=== PATIENT | female | born 2005 | race Hispanic/Latino ===

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

== ENCOUNTER 2023-11-19 16:21 | Inpatient (IN) | payer SELFPAY ==
[2023-11-19] MEDS ORDERED: Guaifenesin DM 100-10/5 ML UDCUP PO PRN (17:34)
[2023-11-19] MEDS ORDERED: Ondansetron PF 4 MG/2 ML Vial IVP PRN (17:34)
[2023-11-19] MEDS ORDERED: Acetaminophen 325 MG TAB PO PRN (17:34)
[2023-11-19] MEDS ORDERED: Sodium Chloride 0.9% 1,000 ML IV PRN ×4 (17:34)
[2023-11-19] MEDS ORDERED: NS 0.9% w/ 20 MEQ KCL 1,000 ML IV PRN ×2 (17:34)
[2023-11-19] MEDS ORDERED: Dextrose 50% Abboject 50 ML SYRINGE SLOW IVP PRN (17:34)
[2023-11-19] MEDS ORDERED: Electrolyte Replacement Protocol FS PRN (18:30)
[2023-11-19 18:35] LABS: BHCG - Serum Negative (NEGATIVE); Pregs Control Background? CLEAR/WHITE (CLR/WHITE); Pregs Control Bar Appear? YES (CONTROL BAR)
[2023-11-19 18:44] LABS: Anion Gap 16 mmol/L (10-20); BUN (Urea Nitrogen) 8 mg/dL (7.0-18.7); Calc. Creatinine Clearance 0 mL/min (70-130); Calcium 7.9 mg/dL (7.8-10.44); Carbon Dioxide Less than 8 mmol/L (22-29); Chloride 113 mmol/L (98-107); Estimated GFR 101; Glucose 194 mg/dL (70-105); Potassium 3.4 mmol/L (3.5-5.1); Sodium 133 mmol/L (136-145)
[2023-11-19] MEDS: Dextrose 5 %-0.45 % NaCl 1,000 ML IV PRN (19:00)
[2023-11-19 19:28] VITALS: BMI 24.0
[2023-11-19 22:56] LABS: Amphetamine Not Detected (NotDetected); Barbiturates Screen Not Detected (NotDetected); Benzodiazepine Screen Not Detected (NotDetected); Cocaine Metabolite Screen Not Detected (NotDetected); Methadone Not Detected (NotDetected); Methamphetamine Not Detected (NotDetected); Opiate Screen Not Detected (NotDetected); Oxycodone Screen Not Detected (NotDetected); Phencyclidine (PCP) Not Detected (NotDetected); THC/Cannabinoid Screen Not Detected (NotDetected); Tricyclic Screen Not Detected (NotDetected)
[2023-11-19 23:03] LABS: Anion Gap 9 mmol/L (10-20); BUN (Urea Nitrogen) 5 mg/dL (7.0-18.7); Calc. Creatinine Clearance 104 mL/min (70-130); Calcium 8.2 mg/dL (7.8-10.44); Carbon Dioxide 12 mmol/L (22-29); Chloride 116 mmol/L (98-107); Estimated GFR 107; Glucose 207 mg/dL (70-105); Potassium 3.3 mmol/L (3.5-5.1); Sodium 134 mmol/L (136-145)
[2023-11-19] MEDS: Electrolyte Replacement Protocol 1 EACH IVPB ONE (23:03)
[2023-11-19] MEDS: Potassium Chloride 20 MEQ TAB PO SCH (23:20)
[2023-11-20 04:50] LABS: ALT (SGPT) 9 U/L (8-55); AST (SGOT) 9 U/L (5-34); Alkaline Phosphatase 55 U/L (40-100); Anion Gap 10 mmol/L (10-20); BUN (Urea Nitrogen) 4 mg/dL (7.0-18.7); Bilirubin, Total 0.2 mg/dL (0.2-1.2); Calc. Creatinine Clearance 115 mL/min (70-130); Calcium 8.1 mg/dL (7.8-10.44); Carbon Dioxide 13 mmol/L (22-29); Chloride 115 mmol/L (98-107); Estimated GFR 121; Globulin 2.6 g/dL (2.4-3.5); Glucose 161 mg/dL (70-105); Potassium 3.6 mmol/L (3.5-5.1); Protein, Total 5.6 g/dL (6.0-8.3); Sodium 134 mmol/L (136-145)
[2023-11-20] MEDS: Enoxaparin 40 MG (0.4 mL) SYRINGE SC SCH (08:52)
[2023-11-20] MEDS: Pantoprazole DR 40 MG TAB PO SCH (08:52)
[2023-11-20 10:34] LABS: Phosphorus 1.4 mg/dL (2.3-4.7)
[2023-11-20 12:22] LABS: Anion Gap 10 mmol/L (10-20); BUN (Urea Nitrogen) Less than 4 mg/dL (7.0-18.7); Calc. Creatinine Clearance 118 mL/min (70-130); Calcium 8.4 mg/dL (7.8-10.44); Carbon Dioxide 15 mmol/L (22-29); Chloride 113 mmol/L (98-107); Estimated GFR 123; Glucose 188 mg/dL (70-105); Potassium 3.5 mmol/L (3.5-5.1); Sodium 134 mmol/L (136-145)
[2023-11-20] MEDS: Potassium Phosphate 30 MMOL in Sodium Chloride 0.9% 250 ML 250 ML IVPB SCH (14:07)
[2023-11-20 16:06] VITALS: BMI 24.2
[2023-11-20] MEDS: D5 1/2 NS w/20 mEq KCL 1,000 ML IV PRN (17:47)
[2023-11-20] MEDS: INSULIN REGULAR IN 0.9 % NACL 100 ML IVPB SCH (17:47)
[2023-11-20 22:32] LABS: Anion Gap 11 mmol/L (10-20); BUN (Urea Nitrogen) 4 mg/dL (7.0-18.7); Calc. Creatinine Clearance 121 mL/min (70-130); Calcium 8.5 mg/dL (7.8-10.44); Carbon Dioxide 17 mmol/L (22-29); Chloride 112 mmol/L (98-107); Estimated GFR 127; Glucose 209 mg/dL (70-105); Potassium 3.6 mmol/L (3.5-5.1); Sodium 136 mmol/L (136-145)
[2023-11-21 08:14] LABS: #Basophils 0.03 10x3/uL (0.0-0.2); %Eosinophils 2.1 % (0.0-10.0); %Lymphocytes 43.9 % (28.0-48.0); %Monocytes 13.5 % (0.0-4.0); %Neutrophils 38.8 % (31.0-61.0); Hematocrit 32.4 % (36.0-47.0); Hemoglobin 11.1 g/dL (12.0-16.0); Mean Corpuscular HGB CONC 34.3 g/dL (32.0-36.0); Mean Corpuscular Hemoglobin 29.1 pg (25.0-35.0); Mean Platelet Volume 10.7 fL (7.4-10.4); Platelet Count 160 10x3/uL (130-400); RBC Distribution Width 13.4 % (11.5-14.5); Red Blood Cell (RBC) Count 3.81 mill/uL (4.00-5.20)
[2023-11-21 08:46] LABS: Anion Gap 13 mmol/L (10-20); BUN (Urea Nitrogen) Less than 4 mg/dL (7.0-18.7); Calc. Creatinine Clearance 154 mL/min (70-130); Calcium 7.8 mg/dL (7.8-10.44); Carbon Dioxide 17 mmol/L (22-29); Chloride 112 mmol/L (98-107); Estimated GFR 133; Glucose 223 mg/dL (70-105); Magnesium 1.1 mg/dL (1.7-2.2); Sodium 139 mmol/L (136-145)
[2023-11-21 08:52] LABS: Phosphorus 3.7 mg/dL (2.3-4.7)
[2023-11-21] MEDS: Potassium Chloride 20 MEQ TAB PO SCH (11:14)
[2023-11-21] MEDS: Magnesium Sulfate In Water 4 GM in Premix 1 BAG IVPB SCH (11:14)
[2023-11-21 14:08] LABS: Anion Gap 13 mmol/L (10-20); BUN (Urea Nitrogen) Less than 4 mg/dL (7.0-18.7); Calc. Creatinine Clearance 175 mL/min (70-130); Calcium 8.3 mg/dL (7.8-10.44); Carbon Dioxide 22 mmol/L (22-29); Chloride 111 mmol/L (98-107); Estimated GFR 137; Glucose 190 mg/dL (70-105); Potassium 4.1 mmol/L (3.5-5.1); Sodium 142 mmol/L (136-145)
[2023-11-21] MEDS ORDERED: Glucagon 1 MG/ML KIT IM PRN (15:31)
[2023-11-21] MEDS ORDERED: Dextrose 5% in Water 1,000 ML IV PRN (15:31)
[2023-11-21] MEDS ORDERED: Dextrose 50% Abboject 50 ML SYRINGE SLOW IVP PRN (15:31)
[2023-11-21] MEDS: Insulin Glargine 30 UNITS/0.3 ML VIAL SC SCH (16:39)
[2023-11-22 00:40] LABS: Glucose POC Confirmation 468 mg/dL (70-105)
[2023-11-22] MEDS: Insulin Lispro 100 UNIT/ML 10 ML VIAL SC PRN (01:09)
[2023-11-22] MEDS: Insulin Lispro 100 UNIT/ML 10 ML VIAL SC SCH (01:09)
[2023-11-22] MEDS: Sodium Chloride 0.9% 500 ML IV SCH (01:10)
[2023-11-22 03:50] LABS: #Basophils Less than 0.03 10x3/uL (0.0-0.2); %Basophils 0.5 % (0.0-1.0); %Eosinophils 1.8 % (0.0-10.0); %Lymphocytes 35.5 % (28.0-48.0); %Monocytes 9.8 % (0.0-4.0); %Neutrophils 51.9 % (31.0-61.0); Hematocrit 32.6 % (36.0-47.0); Mean Corpuscular HGB CONC 33.7 g/dL (32.0-36.0); Mean Corpuscular Hemoglobin 29.4 pg (25.0-35.0); Mean Corpuscular Volume 87.2 fL (78.0-98.0); Mean Platelet Volume 10.5 fL (7.4-10.4); Platelet Count 159 10x3/uL (130-400); RBC Distribution Width 13.5 % (11.5-14.5); Red Blood Cell (RBC) Count 3.74 mill/uL (4.00-5.20)
[2023-11-22 04:10] LABS: Anion Gap 16 mmol/L (10-20); BUN (Urea Nitrogen) 8 mg/dL (7.0-18.7); Calc. Creatinine Clearance 154 mL/min (70-130); Calcium 8.9 mg/dL (7.8-10.44); Carbon Dioxide 23 mmol/L (22-29); Chloride 106 mmol/L (98-107); Estimated GFR 133; Glucose 186 mg/dL (70-105); Potassium 3.5 mmol/L (3.5-5.1); Sodium 141 mmol/L (136-145)
[2023-11-22] MEDS: Insulin Glargine 30 UNITS/0.3 ML VIAL SC SCH ×2 (08:13→12:13)
[2023-11-22] MEDS: Potassium Chloride 20 MEQ TAB PO SCH ×2 (08:23→12:12)
[2023-11-22 09:56] VITALS: TEMP 98.4
[2023-11-22 11:54] LABS: Hemoglobin A1c 12.2 % (4.0-6.0)
[2023-11-22 12:00] LABS: Potassium 3.9 mmol/L (3.5-5.1)
[2023-11-22 13:27] VITALS: BP 102/69
[2023-11-23] MEDS ORDERED: Insulin Glargine 30 UNITS/0.3 ML VIAL SC SCH (09:00)
== END 2023-11-22 15:28 | disposition home or self-care (01) | DRG 639 ==
LOC: IMCU/EMU 16:55 → 2SW 11-21 20:27
PROVIDERS: ADMIT Internal Medicine; ATTEND Internal Medicine
DX: E10.10 Type 1 diabetes mellitus with ketoacidosis without coma (principal); E03.9 Hypothyroidism, unspecified; Z79.899 Other long term (current) drug therapy; E87.6 Hypokalemia; E83.39 Other disorders of phosphorus metabolism; Z79.4 Long term (current) use of insulin; Z98.890 Other specified postprocedural states
CPT/HCPCS: 36415; 36416; 80048; 80306; 82010; 83036; 83735; 84100; 84703; 85025; J1650; J1815; J3475; J3480; J7030; J7042; J7050